=== PATIENT | female | born 1995 ===

== ENCOUNTER 2018-10-12 12:48 | Outpatient (CLI) | payer OTHER ==
[~2018-10-12] VITALS: Ht 160 cm; Wt 55.8 kg
== END 2018-10-12 13:10 | disposition home or self-care (01) ==
LOC: OFIC 805 12:48
DX: S02.2XXA Fracture of nasal bones, initial encounter for closed fracture (principal)

== ENCOUNTER → 2018-10-16 | Outpatient (CLI) | payer OTHER ==
[~2018-10-16] VITALS: Ht 152.4 cm; Wt 55.8 kg
== END | disposition home or self-care (01) ==
LOC: OFIC 805 12:04
DX: S02.2XXA Fracture of nasal bones, initial encounter for closed fracture (principal); S02.2XXG Fracture of nasal bones, subsequent encounter for fracture with delayed healing; H61.21 Impacted cerumen, right ear; H91.8X1 Other specified hearing loss, right ear

== ENCOUNTER 2018-10-26 10:11 | Outpatient (CLI) | payer OTHER ==
[~2018-10-26] VITALS: Ht 152.4 cm; Wt 55.8 kg
== END 2018-10-26 10:25 | disposition home or self-care (01) ==
LOC: OFIC 805 10:11
DX: S02.2XXG Fracture of nasal bones, subsequent encounter for fracture with delayed healing (principal); S02.2XXA Fracture of nasal bones, initial encounter for closed fracture

== ENCOUNTER 2018-11-27 10:35 | Outpatient (CLI) | payer OTHER ==
[~2018-11-27] VITALS: Ht 152.4 cm; Wt 55.8 kg
== END 2018-11-27 10:50 | disposition home or self-care (01) ==
LOC: OFIC 805 10:35
DX: S02.2XXA Fracture of nasal bones, initial encounter for closed fracture (principal); R09.81 Nasal congestion